=== PATIENT | female | born 1990 | race Caucasian/White ===

== ENCOUNTER 2021-09-17 13:56 | Emergency (ER) | payer OTHER ==
[2021-09-17 14:09] VITALS: BP 120/79; PULSE 74; TEMP 98.5; BMI 22.8
[2021-09-17 15:54] LABS: HCG,QUALITATIVE URINE Positive
[2021-09-17 16:00] LABS: EPI CELLS >36 /uL (0-25.1); HYALINE CASTS 1 /uL (0-3.1); URINE APPEARANCE CLOUDY; URINE BACTERIA 3074 /uL (0-1359); URINE BILIRUBIN NEGATIVE (NEGATIVE); URINE COLOR YELLOW; URINE GLUCOSE (UA) NEGATIVE (NEGATIVE); URINE KETONE NEGATIVE (NEGATIVE); URINE LEUK ESTERASE NEGATIVE (NEGATIVE); URINE NITRITE NEGATIVE (NEGATIVE); URINE PROTEIN NEGATIVE (NEGATIVE); URINE UROBILINOGEN 0.2 mg/dL (0.2-1.0)
[2021-09-17 17:03] LABS: BASO % 0.4 % (0-2.0); EOS % 1.3 % (0-4.5); HEMATOCRIT 40.2 % (32.4-45.2); HEMOGLOBIN 13.4 GM/dL (10.7-15.3); LYMPH % 31.4 % (8-40); MCH 30.5 pg (25.7-33.7); MCHC 33.3 g/dl (32.0-36.0); MEAN CELL VOLUME 91.8 fl (80-96); MEAN PLT VOLUME 8.6 fl (7.5-11.1); MONO % 7.3 % (3.8-10.2); NEUT % 59.6 % (42.8-82.8); PLATELET COUNT 293 10^3/uL (134-434); RBC 4.38 M/mm3 (3.60-5.2); RDW 13.1 % (11.6-15.6); WHITE BLOOD COUNT 8.1 K/mm3 (4.0-10.0)
[2021-09-17 20:56] LABS: URINE RBC 20.6 /uL (0-23.9)
[2021-09-17 20:57] LABS: URINE WBC 67.5 /uL (0-25.8)
== END 2021-09-17 20:47 | disposition home or self-care (01) ==
LOC: JER 13:56
DX: O02.1 Missed abortion (principal)
CPT/HCPCS: 36415; 76817-TC; 81003; 84702; 84703; 85025; 86850; 86900; 86901; 87086; 87491; 87591; 99284-25

== ENCOUNTER 2021-09-21 18:42 | Observation (INO) | payer OTHER ==
[2021-09-21 18:51] VITALS: BMI 24.4
[2021-09-21] MEDS ORDERED: SODIUM CHLORIDE 0.9% 500 ML INFUS.BAG IV ONE (19:22)
[2021-09-21] MEDS ORDERED: KETOROLAC TROMETHAMINE 15 MG/ML VIAL IVPUSH ONE (19:23)
[2021-09-21] MEDS ORDERED: ACETAMINOPHEN 325 MG TABLET (FP) PO ONE (19:23)
[2021-09-21] MEDS ORDERED: ACETAMINOPHEN 325 MG TABLET (FP) ONE (19:32)
[2021-09-21] MEDS ORDERED: KETOROLAC TROMETHAMINE 15 MG/ML VIAL ONE (19:33)
[2021-09-21 19:52] LABS: BASO % 0.2 % (0-2.0); EOS % 1.3 % (0-4.5); HEMATOCRIT 38.7 % (32.4-45.2); HEMOGLOBIN 13.3 GM/dL (10.7-15.3); LYMPH % 18.1 % (8-40); MCH 31.2 pg (25.7-33.7); MCHC 34.4 g/dl (32.0-36.0); MEAN CELL VOLUME 90.7 fl (80-96); MEAN PLT VOLUME 8.4 fl (7.5-11.1); MONO % 5.2 % (3.8-10.2); NEUT % 75.2 % (42.8-82.8); PLATELET COUNT 270 10^3/uL (134-434); RBC 4.27 M/mm3 (3.60-5.2); RDW 13.1 % (11.6-15.6); WHITE BLOOD COUNT 11.2 K/mm3 (4.0-10.0)
[2021-09-21 20:01] LABS: INR 1.12 (0.83-1.09); PROTHROMBIN TIME (PATIENT) 12.9 SEC (9.7-13.0)
[2021-09-21 20:04] LABS: ACTIVATED PTT 31.6 SECONDS (25.2-36.5)
[2021-09-21 20:12] LABS: CALCIUM 9.8 mg/dL (8.5-10.1)
[2021-09-21 20:13] LABS: ALBUMIN 4.2 g/dl (3.4-5.0); BLOOD UREA NITROGEN 5.9 mg/dL (7-18); MAGNESIUM 1.9 mg/dL (1.8-2.4)
[2021-09-21 20:16] LABS: CREATININE 0.6 mg/dL (0.55-1.3)
[2021-09-21 20:17] LABS: BILIRUBIN,TOTAL 0.2 mg/dL (0.2-1)
[2021-09-21 20:18] LABS: TOT PROT 8.1 g/dl (6.4-8.2)
[2021-09-21 22:46] LABS: BASO % 0.2 % (0-2.0); EOS % 0.7 % (0-4.5); HEMATOCRIT 32.2 % (32.4-45.2); HEMOGLOBIN 10.9 GM/dL (10.7-15.3); LYMPH % 20.8 % (8-40); MCH 30.9 pg (25.7-33.7); MCHC 33.9 g/dl (32.0-36.0); MEAN CELL VOLUME 91.3 fl (80-96); MONO % 4.5 % (3.8-10.2); NEUT % 73.8 % (42.8-82.8); PLATELET COUNT 220 10^3/uL (134-434); RBC 3.52 M/mm3 (3.60-5.2); RDW 13.1 % (11.6-15.6); WHITE BLOOD COUNT 13.5 K/mm3 (4.0-10.0)
[2021-09-22] MEDS ORDERED: SODIUM CHLORIDE 1,000 ML IV SCH (01:45)
[2021-09-22] MEDS ORDERED: ACETAMINOPHEN 1000 MG/100 ML BAG IVPB PRN ×2 (03:24→12:03)
[2021-09-22 08:39] LABS: BASO % 0.3 % (0-2.0); EOS % 2.4 % (0-4.5); HEMATOCRIT 31.4 % (32.4-45.2); HEMOGLOBIN 10.8 GM/dL (10.7-15.3); LYMPH % 34.2 % (8-40); MCH 31.6 pg (25.7-33.7); MCHC 34.5 g/dl (32.0-36.0); MEAN CELL VOLUME 91.7 fl (80-96); MEAN PLT VOLUME 8.2 fl (7.5-11.1); MONO % 5.7 % (3.8-10.2); NEUT % 57.4 % (42.8-82.8); PLATELET COUNT 221 10^3/uL (134-434); RBC 3.43 M/mm3 (3.60-5.2)
[2021-09-22 08:45] LABS: INR 1.25 (0.83-1.09); PROTHROMBIN TIME (PATIENT) 14.4 SEC (9.7-13.0)
[2021-09-22 08:48] LABS: ACTIVATED PTT 31.3 SECONDS (25.2-36.5)
[2021-09-22 08:59] LABS: CALCIUM 8.4 mg/dL (8.5-10.1)
[2021-09-22 09:00] LABS: BLOOD UREA NITROGEN 4.7 mg/dL (7-18)
[2021-09-22 09:02] LABS: CREATININE 0.5 mg/dL (0.55-1.3)
[2021-09-22 09:03] LABS: PHOSPHOROUS 3.4 mg/dL (2.5-4.9)
[2021-09-22 09:04] LABS: BILIRUBIN,TOTAL 0.5 mg/dL (0.2-1)
[2021-09-22 09:08] LABS: ALBUMIN 3.2 g/dl (3.4-5.0)
[2021-09-22] MEDS ORDERED: FLU VACC QS2021-22(6MOS UP)/PF 60 MCG/0.5 ML SYRINGE IM ONE (10:00)
[2021-09-22 10:02] VITALS: BP 96/55; PULSE 95; TEMP 98.3
[2021-09-22] MEDS ORDERED: ACETAMINOPHEN 325 MG TABLET (FP) ONE (12:00)
== END 2021-09-22 13:05 | disposition home or self-care (01) ==
LOC: JER 18:42 → JERBED 22:51 → J3W 09-22 01:42
PROVIDERS: ADMIT Hospitalist; ATTEND Internal Medicine
PROC: 3E023GC Introduction of Other Therapeutic Substance into Muscle, Percutaneous Approach (ICD-10-PCS; principal; 2021-09-21)
PROC: 3E033NZ Introduction of Analgesics, Hypnotics, Sedatives into Peripheral Vein, Percutaneous Approach (ICD-10-PCS; 2021-09-21)
PROC: 3E0333Z Introduction of Anti-inflammatory into Peripheral Vein, Percutaneous Approach (ICD-10-PCS; 2021-09-21)
PROC: 3E0337Z Introduction of Electrolytic and Water Balance Substance into Peripheral Vein, Percutaneous Approach (ICD-10-PCS; 2021-09-21)
DX: O03.9 Complete or unspecified spontaneous abortion without complication (principal); N93.9 Abnormal uterine and vaginal bleeding, unspecified; D64.9 Anemia, unspecified; R42 Dizziness and giddiness; D64.89 Other specified anemias
CPT/HCPCS: 36415; 76830-TC; 80053; 83735; 84100; 84702; 85025; 85610; 85730; 86850; 86900; 86901; 90686; 93005; 93010; 96361; 96372; 96374; 96375; 99285-25; C9803; G0378; U0003; U0005